=== PATIENT | male | born 1945 | race Caucasian/White ===

== ENCOUNTER 2016-09-19 08:01 | Day surgery (SDC) | payer MEDICARE, BC ==
[~2016-09-19 08:01] MED LIST: Metoclopramide 10 MG/2 ML SDV IV PRN; Sodium Chloride 0.9% 1,000 ML IV SCH
[2016-09-19] MEDS ORDERED: Propofol 1,000 MG/100 ML SDV ONE (09:45)
[2016-09-19] MEDS ORDERED: Propofol 200 MG/20 ML SDV ONE (09:50)
[2016-09-19 14:23] VITALS: BP 132/70
--- NOTE | 2016-09-19 15:24 | OR ---
DATE OF OPERATION: 09/19/2016 PREOPERATIVE DIAGNOSIS: Screening colonoscopy. POSTOPERATIVE DIAGNOSES: 1. Transverse colon polyp. 2. Descending colon polyp. 3. Otherwise, normal colonoscopy. OPERATION: Screening colonoscopy with snare polypectomy. COMPLICATIONS: None. DRAINS: None. SPECIMENS: 1. Transverse colon polyp. 2. Descending colon polyp. ESTIMATED BLOOD LOSS: Minimal. ANESTHESIA: General propofol anesthesia. INDICATION: Mr. Weinberg is a 71-year-old gentleman, who is here for his screening colonoscopy. He mentions that his previous was approximately 5 to 7 years ago. He is currently asymptomatic. He is considered increased risk. The above-mentioned procedure was explained. The risks, benefits, and complications were explained. The patient understood and agreed, and was brought to the operating room. DESCRIPTION OF PROCEDURE: The patient was brought to the operating room, placed in the left lateral decubitus position on the operating room table. Satisfactory general propofol anesthesia was administered. We began by performing a rectal examination, which was within normal limits. I then placed the endoscope by finger introduction into the rectum and subsequently advanced this to the level of the cecum. Cecum was identified by the ileocecal valve, the appendiceal orifice as well as the cecal strap. Careful evaluation of the colonic mucosa was made on withdrawal. There were no telangiectasias, neoplastic growths, or diverticula. However, there was a 2 medium sized flat polyps, which had an adenomatous appearance and were broad-based identified in the mid transverse colon as well as the proximal descending colon. Both were removed by cold snare polypectomy. Both were retrieved and sent for histology. Both were completely removed. Hemostasis appeared satisfactory. There were no other identifiable polyps or lesions. I performed a retroflexion maneuver in the rectum, which was within normal limits. The colon was then decompressed and the endoscope was withdrawn. The patient tolerated the procedure well. Was awoken in the OR and taken to PACU for recovery. There were no complications. Instrument count was correct. JEANNINE/TERESITA /[id number]
== END 2016-09-19 11:58 | disposition home or self-care (01) ==
LOC: LB.SDS 08:01
PROVIDERS: ATTEND Surgery
DX: Z12.11 Encounter for screening for malignant neoplasm of colon (principal); D12.3 Benign neoplasm of transverse colon; I10 Essential (primary) hypertension; I25.2 Old myocardial infarction; Z98.890 Other specified postprocedural states; Z86.010 Personal history of colon polyps; Z85.118 Personal history of other malignant neoplasm of bronchus and lung
CPT/HCPCS: 45385; 88305; J2704; J7040; J3490

== ENCOUNTER 2017-01-09 11:59 | Emergency (ER) | payer MEDICARE, BC ==
--- NOTE | 2017-01-09 13:02 | EDM.PDOC ---
ED HPI GENERAL MEDICAL PROBLEM - General Chief Complaint: Gastrointestinal Problem Stated Complaint: Bowel Problem Time Seen by Provider: 01/09/17 12:15 Source of Information: Reports: Patient History Limitations: Reports: No Limitations - History of Present Illness INITIAL COMMENTS - FREE TEXT/NARRATIVE: Pt claims that he was constipated for 10 days now. He wa able to eat and had no problem. But had not used toilet for bowel movements. Hence he took 2 tablets of dulcolax twice daily yesterday and today and did drink 28-30 ozes of prune juice. Today morning he started to have diarrhea. Stool was semi-formed and liquidy. No blood or mucus in the stool. No cramping of the abdomen. He had 5 bouts today since morning and hence he is here. No nausea or vomiting. No abdominal distension. No fever or chills. He has been eating and drinking normally. HE is concerned about his loose stool and wants to make sure they will stop. According to patient, he has had altered bowel habits for a while. He can go from regular bowel movement to constipation and some times loose stool. He did have colonoscopy 2 months ago and was reassured , his colon is fine and no cancer seen. Onset: Today Onset Date: 01/09/17 Onset Time: 08:00 Severity: Moderate Improves with: Reports: None Worsens with: Reports: None Associated Symptoms: Denies: Confusion, Chest Pain, Cough, Diaphoresis, Fever/ Chills, Nausea/Vomiting, Rash, Seizure, Shortness of Breath, Syncope, Weakness - Related Data Allergies Allergy/AdvReac Type Severity Reaction Status Date / Time meperidine [From Demerol] Allergy Nausea and Verified 09/19/16 08:35 Vomiting Home Meds: Home Meds Carvedilol 6.25 mg PO BID 09/18/16 [History] Lisinopril 2.5 mg PO DAILY 09/18/16 [History] Lovastatin 40 tab PO DAILY 09/18/16 [History] Pantoprazole [ProTONIX] 40 mg PO DAILY 09/18/16 [History] Spironolactone [Aldactone] 25 cap PO ASDIRECTED 09/18/16 [History] Verapamil [Verapamil ER] 180 mg PO DAILY 09/18/16 [History] Past Medical History Cardiovascular History: Reports: Automatic Implantable Cardioverter Defibrillators Genitourinary History: Reports: Other (See Below) Other Genitourinary History: hx of prostate cancer Oncologic (Cancer) History: Reports: Prostate Social & Family History - Family History Oncologic: Reports: Colon, Other (See Below) Other Oncologic Family History: Dad had colon CA at age 78 - Tobacco Use Smoking Status *Q: Never Smoker Second Hand Smoke Exposure: No - Caffeine Use Caffeine Use: Reports: Coffee - Alcohol Use Days Per Week of Alcohol Use: 1 Number of Drinks Per Day: 0 Total Drinks Per Week: 0 - Recreational Drug Use Recreational Drug Use: No ED ROS GENERAL - Review of Systems Review Of Systems: See Below Constitutional: Denies: Fever, Chills, Malaise, Weakness HEENT: Denies: Sinus Problem, Throat Pain, Throat Swelling Respiratory: Denies: Shortness of Breath, Wheezing, Pleuritic Chest Pain, Cough , Sputum Cardiovascular: Denies: Chest Pain, Lightheadedness GI/Abdominal: Reports: Diarrhea. Denies: Abdominal Pain, Black Stool, Bloody Stool, Constipation, Nausea, Vomiting : Denies: Dysuria, Flank Pain Musculoskeletal: Denies: Joint Pain, Joint Swelling Skin: Denies: Pruritis, Rash ED EXAM, GENERAL - Physical Exam Exam: See Below Exam Limited By: No Limitations General Appearance: Alert, WD/WN, No Apparent Distress, Other (hydration is appropriate) Eye Exam: Bilateral Eye: EOMI, PERRL Ears: Normal External Exam, Normal Canal, Hearing Grossly Normal, Normal TMs Ear Exam: Bilateral Ear: Auricle Normal, Canal Normal, TM normal Nose: Normal Inspection, Normal Mucosa, No Blood Throat/Mouth: Normal Inspection, Normal Lips, Normal Teeth, Normal Gums, Normal Oropharynx, Normal Voice, No Airway Compromise Head: Atraumatic, Normocephalic Neck: Normal Inspection, Supple, Non-Tender, Full Range of Motion Respiratory/Chest: No Respiratory Distress, Lungs Clear, Normal Breath Sounds, No Accessory Muscle Use, Chest Non-Tender Cardiovascular: Normal Peripheral Pulses, Regular Rate, Rhythm, No Edema, No Gallop, No JVD, No Murmur, No Rub GI/Abdominal: Normal Bowel Sounds, Soft, Non-Tender, No Organomegaly, No Distention, No Abnormal Bruit, No Mass Extremities: Normal Inspection, Normal Range of Motion, Non-Tender, Normal Capillary Refill, No Pedal Edema Neurological: Alert, Oriented Psychiatric: Normal Affect, Normal Mood Skin Exam: Warm, Intact Course - Vital Signs Text/Narrative:: Pt's clinical exam is normal. He did have one large bowel movement in the emergency room, which is liquidly and yellow color. No blood or mucus in the stool. His abdominal exam is benign. CBC is normal with white count of 5K and Hemoglobin of 13.7gm. Also his abdomen Xray upright, appear clear with normal gas shadows, and the stool is colon contreras cleared up. Pt reassured, he is having diarrhea form the prune juice and dulcolax. I have advised patient not to do anything and let the stools resolve by themselves. His hydration is normal. Have advised plenty of fluids. For his chronic constipation. Advised high fibre diet and good hydration. One tablet of dulcolax at bedtime regularly. - Orders/Labs/Meds Orders: Active Orders 24 hr Category Date Time Status Abdomen 1V Upright [CR] Stat Exams 01/09/17 12:29 Taken Labs: Laboratory Tests 01/09/17 Range/Units 12:30 WBC 5.4 (4.0-11.0) K/uL RBC 4.52 (4.50-6.50) M/uL Hgb 13.7 (13.0-18.0) g/dL Hct 41.0 (40.0-54.0) % MCV 91 (76-96) fL MCH 30.3 (27.0-32.0) pg MCHC 33.4 (31.0-35.0) g/dL RDW 13.2 (11.0-16.0) % Plt Count 193 (150-400) K/uL MPV 9.8 (6.0-10.0) fL Neut % (Auto) 61.8 (45.0-70.0) % Lymph % (Auto) 23.2 (20.0-40.0) % [place] % (Auto) 10.2 H (3.0-10.0) % Eos % (Auto) 4.1 (1.0-5.0) % Baso % (Auto) 0.7 H (0.0-0.5) % Neut # (Auto) 3.32 (2.00-7.50) K/uL Lymph # (Auto) 1.25 L (1.50-4.00) K/uL [place] # (Auto) 0.55 (0.20-0.80) K/uL Eos # (Auto) 0.22 (0.04-0.40) K/uL Baso # (Auto) 0.04 (0.02-0.10) K/uL Departure - Departure Time of Disposition: 13:00 Disposition: Home, Self-Care 01 Condition: Good 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 He did have one large bowel movement in the emergency room, which is liquidly and yellow color. No blood or mucus in the stool. His abdominal exam is benign. CBC is normal with white count of 5K and Hemoglobin of 13.7gm. Also his abdomen Xray upright, appear clear with normal gas shadows, and the stool is colon contreras cleared up. Pt reassured, he is having diarrhea form the prune juice and dulcolax. I have advised patient not to do anything and let the stools resolve by themselves. His hydration is normal. Have advised plenty of fluids. For his chronic constipation. Advised high fibre diet and good hydration. One tablet of dulcolax at bedtime regularly.
[2017-01-09 13:44] VITALS: BP 110/70
--- NOTE | 2017-01-09 14:40 | CR ---
DATE OF SERVICE: 01/09/17 CLINICAL DATA: liquid stool SUPINE AND UPRIGHT ABDOMEN There is a moderate amount of stool present throughout the colon. No evidence of obstruction or ileus. No free air. There are multiple calcifications in the right upper quadrant most likely representing gallstones. Gallbladder ultrasound is recommended. There is calcification in the region of the splenic artery. The exam is otherwise negative. [id number] [facility]
== END 2017-01-09 13:04 | disposition home or self-care (01) ==
LOC: LB.ED 11:59
DX: K52.1 Toxic gastroenteritis and colitis (principal); T47.4X5A Adverse effect of other laxatives, initial encounter; F55.2 Abuse of laxatives; Z79.899 Other long term (current) drug therapy; Z88.5 Allergy status to narcotic agent
CPT/HCPCS: 36415; 74000; 85025; 99283